=== PATIENT | female | born 1965 | race Caucasian/White ===

== ENCOUNTER 2023-01-18 00:20 | Emergency (ER) | payer MEDICAID ==
[~2023-01-18] VITALS: Ht 165.1 cm; Wt 79.2 kg
[2023-01-18 00:30] VITALS: BP 139/90; PULSE 92; RESP 16; TEMP 97.8; O2SAT 98
[2023-01-18] MEDS ORDERED: HYD1C TP (01:05)
[2023-01-18] MEDS ORDERED: FLUC150T PO (01:05)
[2023-01-18] MEDS ORDERED: DIPH25TA53 PO (01:05)
[2023-01-18 01:15] VITALS: BP 131/76; PULSE 82; RESP 16; TEMP 98; O2SAT 98
== END 2023-01-18 01:15 | disposition home or self-care (01) ==
LOC: MED 00:20
DX: L29.2 Pruritus vulvae (principal); Z79.899 Other long term (current) drug therapy
CPT/HCPCS: 81002; 99283